=== PATIENT | female | born 1965 | race African-American/Black ===

== ENCOUNTER 2017-11-17 11:09 | Emergency (ER) | payer SELFPAY ==
[~2017-11-17] VITALS: Ht 167.6 cm; Wt 80.0 kg
[~2017-11-17 11:09] MED LIST: ALBU0.08 NEB; AMLO10TA2 PO; ASPI1TAB69 PO; CETI10 PO; IBUP1TAB7 PO; LISI-515 PO; NITR0.4S SL; POTA-163 PO
[2017-11-17 11:27] VITALS: BP 209/98; PULSE 91; RESP 19; TEMP 98.9; O2SAT 99
[2017-11-17 14:17] LABS: AUTOMATED NEUTROPHIL # 3.9 TH/MM3 (1.8-7.7); BASOPHIL % 0.5 % (0.0-2.0); EOSINOPHIL # 0.1 TH/MM3 (0-0.4); EOSINOPHIL % 1.3 % (0.0-4.0); HEMATOCRIT 46.8 % (35.0-46.0); HEMOGLOBIN 16.2 GM/DL (11.6-15.3); LYMPH % 28.5 % (9.0-44.0); LYMPHOCYTE # 1.8 TH/MM3 (1.0-4.8); MEAN CELL VOLUME 92.9 FL (80.0-100.0); MEAN CORPUSCULAR HEMOGLOBIN 32.2 PG (27.0-34.0); MEAN CORPUSCULAR HGB CONC 34.6 % (32.0-36.0); MEAN PLATELET VOLUME 8.8 FL (7.0-11.0); MONO % 8.4 % (0.0-8.0); MONOCYTE # 0.5 TH/MM3 (0-0.9); NEUT % 61.3 % (16.0-70.0); PLATELET COUNT 287 TH/MM3 (150-450); RED BLOOD COUNT 5.04 MIL/MM3 (4.00-5.30); RED CELL DISTRIBUTION WIDTH 13.1 % (11.6-17.2); WHITE BLOOD COUNT 6.3 TH/MM3 (4.0-11.0)
[2017-11-17 14:23] LABS: BILIRUBIN, URINE NEG (NEG); BLOOD, URINE NEG (NEG); GLUCOSE,URINE NEG (NEG); HYALINE CAST, URINE 1 /lpf (RARE); KETONE, URINE TRACE mg/dL (NEG); MUCUS URINE FEW /lpf (OCC); NITRITE,URINE NEG (NEG); SQUAMOUS EPITHELIAL CELL URINE 1 /hpf (0-5); URINE COLOR YELLOW (YELLW/STRAW); URINE LEUKOCYTE ESTERASE NEG (NEG)
[2017-11-17 14:33] LABS: ALBUMIN 4.1 GM/DL (3.4-5.0); AST (GOT) 21 U/L (15-37); BICARBONATE 25.1 MEQ/L (21.0-32.0); BLOOD UREA NITROGEN 15 MG/DL (7-18); CALCIUM 8.9 MG/DL (8.5-10.1); CHLORIDE 108 MEQ/L (98-107); CREATININE 0.99 MG/DL (0.50-1.00); GLOMERULAR FILTRATION RATE 71 ML/MIN (>89); GLUCOSE,RANDOM 114 MG/DL (74-106); SODIUM (NA) 142 MEQ/L (136-145)
[2017-11-17 14:36] LABS: ALKALINE PHOSPHATASE 91 U/L (45-117); ALT (GPT) 40 U/L (10-53); TOTAL BILIRUBIN ADULT 0.4 MG/DL (0.2-1.0); TOTAL PROTEIN 8.1 GM/DL (6.4-8.2)
[2017-11-17 14:40] LABS: PROTHROMBIN TIME - PATIENT 10.6 SEC (9.8-11.6)
[2017-11-17] MEDS ORDERED: POTASSIUM CHLORIDE 25 MEQ EFFERVESCENT TAB PO ONE (14:45)
[2017-11-17] MEDS ORDERED: SODIUM CHLOR 0.9% 1000 ML INJ 1,000 ML IV ONE (14:45)
[2017-11-17 14:46] VITALS: BP 217/95; PULSE 78; RESP 17; O2SAT 100
[2017-11-17] MEDS ORDERED: AMLO10TA2 PO (14:50)
[2017-11-17] MEDS ORDERED: LISI-515 PO (14:50)
--- NOTE | 2017-11-17 14:50 | PD ---
HPI Chief Complaint: Abdominal Pain Time Seen by Provider: 14:24 Travel History International Travel<30 days: No Contact w/Intl Traveler<30days: No Traveled to known affect area: No History of Present Illness HPI 52-year-old female came to the emergency room with history of diarrhea for past 4 days. She has had some sick contacts in the family. However she just had 2 episodes of diarrhea in past 24 hours. She says she has been nauseous but no vomiting. She also complains of some chest discomfort which she usually gets every now and then. Patient has history of hypertension and congestive heart failure. She supposed to be on blood pressure medications and nitro. But her primary care has stopped practicing and patient has not found another physician. She had not taken her medications for a few weeks now. Her blood pressure was elevated in triage. No history of shortness of breath. Chest pain is in the center without radiation and it comes and goes. Patient has had this chest pain for very long time in the same manner. [facility] Past Medical History Narrative Medical List of her past medical, surgical, social and family history is reviewed from the nursing note. Asthma: Yes Heart Rhythm Problems: No Cancer: No Cardiovascular Problems: Yes High Cholesterol: Yes Chest Pain: Yes Congestive Heart Failure: Yes COPD: Yes Coronary Artery Disease: Yes Diminished Hearing: No Endocrine: No Genitourinary: No Hypertension: Yes Immune Disorder: No Musculoskeletal: No Neurologic: No Psychiatric: No Reproductive: No Respiratory: Yes ?: Not Menopausal: Yes Past Surgical History Section: Yes (x 1) Ear Surgery: Yes Other Surgery: Yes (right ankle repair) Social History Alcohol Use: Yes (8 PACK BEER/DAY) Tobacco Use: Yes (1 PPD) Substance Use: Yes (THC) Allergies-Medications (Allergen,Severity, Reaction): Coded Allergies: No Known Allergies (Verified Adverse Reaction, Unknown, 11/17/17) Comments No known drug allergies. Reported Meds & Prescriptions Reported Meds & Active Scripts Active Amlodipine (Amlodipine Besylate) 10 Mg Tab 10 Mg PO DAILY Lisinopril 20 Mg Tab 20 Mg PO DAILY Reported Cetirizine (Cetirizine HCl) 10 Mg Tab 10 Mg PO DAILY Albuterol Neb (Albuterol Sulfate) 2.5 Mg/3 Ml Neb 2.5 Mg NEB QID NEB Nitrostat SL (Nitroglycerin) 0.4 Mg Subl 0.4 Mg SL DIRECTED PRN ONE TABLET UNDER THE TONGUE NEEDED FOR CHEST PAIN, MAY REPEAT EVERY FIVE MINUTES FOR A TOTAL OF 3 DOSES OR CALL 911 IF NO RELIEF Potassium Chloride ER (Potassium Chloride) 20 Meq Tab 20 Meq PO DAILY Ibuprofen 800 Mg Tab 800 Mg PO TID Aspirin 81 Mg Tabdr 81 Mg PO DAILY Narrative Medication List of her home medications reviewed from the nursing note. Review of Systems Except as stated in HPI: all other systems reviewed are Neg Cardiovascular: Positive: Chest Pain or Discomfort Gastrointestinal: Positive: Nausea, Diarrhea Physical Exam Narrative GENERAL: Awake, alert, mild distress SKIN: Focused skin assessment warm/dry. HEAD: Atraumatic. Normocephalic. EYES: Pupils equal and round. No scleral icterus. No injection or drainage. ENT: No nasal bleeding or discharge. Mucous membranes pink and moist. NECK: Trachea midline. No JVD. CARDIOVASCULAR: Regular rate and rhythm. No murmur appreciated. RESPIRATORY: No accessory muscle use. Clear to auscultation. Breath sounds equal bilaterally. GASTROINTESTINAL: Abdomen soft, non-tender, nondistended. Hepatic and splenic margins not palpable. MUSCULOSKELETAL: No obvious deformities. No clubbing. No cyanosis. No edema. NEUROLOGICAL: Awake and alert. No obvious cranial nerve deficits. Motor grossly within normal limits. Normal speech. PSYCHIATRIC: Appropriate mood and affect; insight and judgment normal. Data Data Last Documented VS Orders Orders Complete Blood Count With Diff (11/17/17 11:50) Comprehensive Metabolic Panel (11/17/17 11:50) Lipase (11/17/17 11:50) Prothrombin Time / Inr (Pt) (11/17/17 11:50) Act Partial Throm Time (Ptt) (11/17/17 11:50) Urinalysis - C+S If Indicated (11/17/17 11:50) Electrocardiogram (11/17/17 ) Sodium Chlor 0.9% 1000 Ml Inj (Ns 1000 M (11/17/17 14:45) Potassium Chloride Eff (K-Lyte Cl Eff) (11/17/17 14:45) Ed Discharge Order (11/17/17 14:44) Amlodipine (Norvasc) (11/17/17 15:00) Lisinopril (Prinivil) (11/17/17 15:00) Labs Laboratory Tests Test 3/6/18 13:44 White Blood Count 6.3 TH/MM3 Red Blood Count 5.04 MIL/MM3 Hemoglobin 16.2 GM/DL Hematocrit 46.8 % Mean Corpuscular Volume 92.9 FL Mean Corpuscular Hemoglobin 32.2 PG Mean Corpuscular Hemoglobin Concent 34.6 % Red Cell Distribution Width 13.1 % Platelet Count 287 TH/MM3 Mean Platelet Volume 8.8 FL Neutrophils (%) (Auto) 61.3 % Lymphocytes (%) (Auto) 28.5 % Monocytes (%) (Auto) 8.4 % Eosinophils (%) (Auto) 1.3 % Basophils (%) (Auto) 0.5 % Neutrophils # (Auto) 3.9 TH/MM3 Lymphocytes # (Auto) 1.8 TH/MM3 Monocytes # (Auto) 0.5 TH/MM3 Eosinophils # (Auto) 0.1 TH/MM3 Basophils # (Auto) 0.0 TH/MM3 CBC Comment DIFF FINAL Differential Comment Prothrombin Time 10.6 SEC Prothromb Time International Ratio 1.0 RATIO Activated Partial Thromboplast Time 25.9 SEC Urine Color YELLOW Urine Turbidity CLEAR Urine pH 6.0 Urine Specific [place] 1.028 Urine Protein 100 mg/dL Urine Glucose (UA) NEG mg/dL Urine Ketones TRACE mg/dL Urine Occult Blood NEG Urine Nitrite NEG Urine Bilirubin NEG Urine Urobilinogen LESS THAN 2.0 MG/DL Urine Leukocyte Esterase NEG Urine RBC LESS THAN 1 /hpf Urine WBC 2 /hpf Urine Squamous Epithelial Cells 1 /hpf Urine Hyaline Casts 1 /lpf Urine Mucus FEW /lpf Microscopic Urinalysis Comment CULT NOT INDICATED Blood Urea Nitrogen 15 MG/DL Creatinine 0.99 MG/DL Random Glucose 114 MG/DL Total Protein 8.1 GM/DL Albumin 4.1 GM/DL Calcium Level 8.9 MG/DL Alkaline Phosphatase 91 U/L Aspartate Amino Transf (AST/SGOT) 21 U/L Alanine Aminotransferase (ALT/SGPT) 40 U/L Total Bilirubin 0.4 MG/DL Sodium Level 142 MEQ/L Potassium Level 3.2 MEQ/L Chloride Level 108 MEQ/L Carbon Dioxide Level 25.1 MEQ/L Anion Gap 9 MEQ/L Estimat Glomerular Filtration Rate 71 ML/MIN Lipase 84 U/L MDM Medical Decision Making Medical Screen Exam Complete: Yes Emergency Medical Condition: Yes Medical Record Reviewed: Yes Interpretation(s) Twelve-lead EKG was reviewed by me. Normal sinus rhythm, normal axis, LVH by voltage criteria, nonspecific ST-T wave changes. Heart rate of 68 bpm. Differential Diagnosis Acute gastroenteritis, medication noncompliant Narrative Course 2:47 PM patient will be medicated for her hypertension. She is getting 1 L of IV fluid bolus. Meanwhile her blood test is also back and potassium is slightly low. I have ordered for replacement. She will be discharged home eventually with refill of her prescription. Procedures EKG Prior to Arrival: No Diagnosis Primary Impression: Acute gastroenteritis Additional Impressions: History of medication noncompliance Hypertension Qualified Codes: I10 - Essential (primary) hypertension Referrals: [facility] 3 days Additional Instructions: Return to the ER if condition worsens or any other new concerns. Please get the prescriptions filled and take the blood pressure medication like you are supposed to. Follow-up with the new clinic whose information has been given to you. Continue taking one baby aspirin every day. Med/Other Pt SpecificInfo: Prescription(s) given Scripts Amlodipine (Amlodipine) 10 Mg Tab 10 MG PO DAILY for Blood Pressure Management, #30 TAB 0 Refills Prov: Lola Frias MD 11/17/17 Lisinopril (Lisinopril) 20 Mg Tab 20 MG PO DAILY, #90 TAB 2 Refills Prov: Lola Frias MD 11/17/17 Disposition: 01 DISCHARGE HOME Condition: Stable Lola Frias MD Nov 17, 2017 14:50
[2017-11-17] MEDS ORDERED: LISINOPRIL 20 MG TAB PO ONE (15:00)
[2017-11-17 16:18] VITALS: BP 202/97; PULSE 73
--- NOTE | 2017-11-18 14:26 | EKG ---
Date Performed: 11/17/2017 Time Performed: 14:42:59 PTAGE: 52 years EKG: Sinus rhythm PREVIOUS TRACING : 08/16/2014 08.17 DOCTOR: Donnell Wilson Interpretating Date/Time 11/18/2017 14:24:58
== END 2017-11-17 17:01 | disposition home or self-care (01) ==
LOC: NEPD 11:09
DX: K52.9 Noninfective gastroenteritis and colitis, unspecified (principal); F17.200 Nicotine dependence, unspecified, uncomplicated; I11.0 Hypertensive heart disease with heart failure; I50.9 Heart failure, unspecified; Z91.14 Patient's other noncompliance with medication regimen
CPT/HCPCS: 80053; 81001; 83690; 85025; 85610; 85730; 93005; 96360; 96361; 99284; J7030

== ENCOUNTER 2017-12-02 13:49 | Emergency (ER) | payer SELFPAY ==
[~2017-12-02] VITALS: Ht 165.1 cm; Wt 65.0 kg
[2017-12-02 14:06] VITALS: BP 146/75; PULSE 97; RESP 16; TEMP 98; O2SAT 97
--- NOTE | 2017-12-02 14:11 | PD ---
HPI Chief Complaint: Respiratory Distress Time Seen by Provider: 14:05 Travel History International Travel<30 days: No Contact w/Intl Traveler<30days: No Traveled to known affect area: No History of Present Illness HPI 52-year-old female presents to the emergency department for evaluation of shortness of breath that started 2 days ago. She also reports upper abdominal pain/tightness. Patient was here on November 19, 2017 for diarrhea and was diagnosed with gastroenteritis. She states the symptoms are different. She does report history of CHF, hypertension, asthma. She states she was using albuterol, but has not used it today. She denies any chest pain. Patient states she vomited 2 times yesterday, no vomiting today. Patient does not know what medications that she is currently on. She reports chills, but no fevers. She denies any previous surgeries. No recent surgery or travel. No leg edema. No hemoptysis. No history DVT or PE. Patient states she had a bowel movement yesterday after being constipated for several days. Abdominal pain is 3/10 without radiation. No exacerbating or alleviating factors. Moderate severity. PFSH Past Medical History Asthma: Yes Heart Rhythm Problems: No Cancer: No Cardiovascular Problems: Yes High Cholesterol: Yes Chest Pain: Yes Congestive Heart Failure: Yes COPD: Yes Coronary Artery Disease: Yes Diminished Hearing: No Endocrine: No Genitourinary: No Hypertension: Yes Immune Disorder: No Musculoskeletal: No Neurologic: No Psychiatric: No Reproductive: No Respiratory: Yes Menopausal: Yes Past Surgical History Section: Yes (x 1) Ear Surgery: Yes Other Surgery: Yes (right ankle repair) Social History Alcohol Use: Yes (8 PACK BEER/DAY) Tobacco Use: Yes (1 PPD) Substance Use: Yes (THC) Allergies-Medications (Allergen,Severity, Reaction): Coded Allergies: No Known Allergies (Verified Adverse Reaction, Unknown, 11/17/17) Reported Meds & Prescriptions Reported Meds & Active Scripts Active Keflex (Cephalexin) 500 Mg Capsule 500 Mg PO Q8H 7 Days Amlodipine (Amlodipine Besylate) 10 Mg Tab 10 Mg PO DAILY Lisinopril 20 Mg Tab 20 Mg PO DAILY Reported Cetirizine (Cetirizine HCl) 10 Mg Tab 10 Mg PO DAILY Albuterol Neb (Albuterol Sulfate) 2.5 Mg/3 Ml Neb 2.5 Mg NEB QID NEB Nitrostat SL (Nitroglycerin) 0.4 Mg Subl 0.4 Mg SL DIRECTED PRN ONE TABLET UNDER THE TONGUE NEEDED FOR CHEST PAIN, MAY REPEAT EVERY FIVE MINUTES FOR A TOTAL OF 3 DOSES OR CALL 911 IF NO RELIEF Potassium Chloride ER (Potassium Chloride) 20 Meq Tab 20 Meq PO DAILY Ibuprofen 800 Mg Tab 800 Mg PO TID Aspirin 81 Mg Tabdr 81 Mg PO DAILY Review of Systems Except as stated in HPI: all other systems reviewed are Neg Physical Exam Narrative GENERAL: Well-nourished, well-developed female patient, afebrile. SKIN: Focused skin assessment warm/dry. HEAD: Normocephalic. Atraumatic. EYES: No scleral icterus. No injection or drainage. NECK: Supple, trachea midline. No JVD or lymphadenopathy. CARDIOVASCULAR: Regular rate and rhythm without murmurs, gallops, or rubs. Bilateral radial and pedal pulses are 2+ RESPIRATORY: Breath sounds equal bilaterally. No accessory muscle use. Lung sounds are clear to auscultation. GASTROINTESTINAL: Abdomen soft and nondistended. She has epigastric and right upper quadrant tenderness to palpation. MUSCULOSKELETAL: No cyanosis, or edema. BACK: Nontender without obvious deformity. No CVA tenderness. Data Data Last Documented VS Vital Signs Date Time Temp Pulse Resp B/P (MAP) Pulse Ox O2 Delivery O2 Flow Rate FiO2 12/02/17 16:27 91 18 137/68 (91) 97 Room Air 12/02/17 14:06 98.0 Orders Orders Complete Blood Count With Diff (12/02/17 14:07) Comprehensive Metabolic Panel (12/02/17 14:07) B-Type Natriuretic Peptide (12/02/17 14:07) Act Partial Throm Time (Ptt) (12/02/17 14:07) Prothrombin Time / Inr (Pt) (12/02/17 14:07) Magnesium (Mg) (12/02/17 14:07) Ckmb (Isoenzyme) Profile (12/02/17 14:07) Troponin I (12/02/17 14:07) Urinalysis - C+S If Indicated (12/02/17 14:07) Influenzae A/B Antigen (12/02/17 14:07) Iv Access Insert/Monitor (12/02/17 14:07) Electrocardiogram (12/02/17 14:07) Ecg Monitoring (12/02/17 14:07) Oximetry (12/02/17 14:07) Oxygen Administration (12/02/17 14:07) Chest, Single Ap (12/02/17 14:07) Sodium Chloride 0.9% Flush (Ns Flush) (12/02/17 14:15) Lipase (12/02/17 14:07) Ct Abd/Pel W Iv Contrast(Rout) (12/02/17 ) Ondansetron Inj (Zofran Inj) (12/02/17 14:15) CKMB (12/02/17 14:32) CKMB% (12/02/17 14:32) Urine Culture (12/02/17 14:15) Iohexol 350 Inj (Omnipaque 350 Inj) (12/02/17 15:49) Sodium Chlor 0.9% 1000 Ml Inj (Ns 1000 M (12/02/17 16:15) Ed Discharge Order (12/02/17 16:29) Labs Laboratory Tests Test 12/02/17 14:15 12/02/17 14:32 Urine Color YELLOW Urine Turbidity HAZY Urine pH 6.5 Urine Specific [place] 1.043 Urine Protein GREATER THAN 600 mg/dL Urine Glucose (UA) NEG mg/dL Urine Ketones NEG mg/dL Urine Occult Blood NEG Urine Nitrite NEG Urine Bilirubin SMALL Urine Urobilinogen 2.0 MG/DL Urine Leukocyte Esterase SMALL Urine RBC 7 /hpf Urine WBC 33 /hpf Urine Squamous Epithelial Cells 3 /hpf Urine Hyaline Casts 27 /lpf Urine Mucus MANY /lpf Microscopic Urinalysis Comment CULTURE INDICATED White Blood Count 4.7 TH/MM3 Red Blood Count 5.09 MIL/MM3 Hemoglobin 15.9 GM/DL Hematocrit 46.6 % Mean Corpuscular Volume 91.6 FL Mean Corpuscular Hemoglobin 31.2 PG Mean Corpuscular Hemoglobin Concent 34.0 % Red Cell Distribution Width 13.0 % Platelet Count 257 TH/MM3 Mean Platelet Volume 9.1 FL Neutrophils (%) (Auto) 56.9 % Lymphocytes (%) (Auto) 31.3 % Monocytes (%) (Auto) 11.1 % Eosinophils (%) (Auto) 0.1 % Basophils (%) (Auto) 0.6 % Neutrophils # (Auto) 2.7 TH/MM3 Lymphocytes # (Auto) 1.5 TH/MM3 Monocytes # (Auto) 0.5 TH/MM3 Eosinophils # (Auto) 0.0 TH/MM3 Basophils # (Auto) 0.0 TH/MM3 CBC Comment DIFF FINAL Differential Comment Prothrombin Time 9.9 SEC Prothromb Time International Ratio 1.0 RATIO Activated Partial Thromboplast Time 30.3 SEC Blood Urea Nitrogen 15 MG/DL Creatinine 1.34 MG/DL Random Glucose 98 MG/DL Total Protein 7.7 GM/DL Albumin 3.5 GM/DL Calcium Level 9.2 MG/DL Magnesium Level 2.3 MG/DL Alkaline Phosphatase 86 U/L Aspartate Amino Transf (AST/SGOT) 24 U/L Alanine Aminotransferase (ALT/SGPT) 33 U/L Total Bilirubin 0.2 MG/DL Sodium Level 142 MEQ/L Potassium Level 3.9 MEQ/L Chloride Level 107 MEQ/L Carbon Dioxide Level 25.5 MEQ/L Anion Gap 10 MEQ/L Estimat Glomerular Filtration Rate 50 ML/MIN Total Creatine Kinase 261 U/L Creatine Kinase MB 1.0 NG/ML Creatine Kinase MB % 0.4 % Troponin I LESS THAN 0.02 NG/ML B-Type Natriuretic Peptide 7 PG/ML Lipase 99 U/L [facility] Medical Decision Making Medical Screen Exam Complete: Yes Emergency Medical Condition: Yes Medical Record Reviewed: Yes Interpretation(s) Last Impressions Chest X-Ray 12/02/17 1407 Signed Impressions: Service Date/Time: Thursday, December 02, 2017 14:26 - CONCLUSION: No acute disease. Teodoro Penny MD CT abdomen/pelvis - CONCLUSION: Nonspecific bowel gas pattern I don't see an inflammatory process in the abdomen. Differential Diagnosis COPD exacerbation versus CHF exacerbation versus ACS versus pancreatitis versus UTI versus gallbladder disease versus diverticulitis Narrative Course 52-year-old female presents to the emergency department for evaluation of shortness of breath, abdominal pain that started 2 days ago with associated vomiting. EKG, CBC, CMP, CK, troponin, lipase, BNP, magnesium, PTT, PT/INR, UA , influenza are ordered and pending. Chest x-ray and CT abdomen/pelvis with IV contrast were ordered and pending. Patient was given Zofran 4 mg IV. EKG shows SR, HR 87. CBC shows no acute abnormality. CMP shows creatinine 1.34. CK is 261. Troponin is less than 0.02. Lipase is 99. BNP is 7. Magnesium is 2.3. Coags show no acute abnormality. UA shows small leukocyte esterase, 33 WBC. Influenza is negative. Chest x-ray shows no acute disease. CT abdomen/pelvis shows nonspecific bowel gas pattern, I don't see an inflammatory process in the abdomen. Patient is given normal saline 1 L IV bolus for hemoconcentration. She will be discharged prescription for Keflex for UTI. Symptoms and physical are consistent with viral syndrome Diagnosis Primary Impression: UTI (urinary tract infection) Qualified Codes: N30.00 - Acute cystitis without hematuria Additional Impression: Viral upper respiratory infection Referrals: Primary Care Physician call for appointment Patient Instructions: General Instructions, Urinary Tract Infection in Women ( ED) Additional Instructions: Take antibiotic as directed until gone. Follow-up with a primary care physician. Return to the emergency department for any acute worsening of symptoms. Med/Other Pt SpecificInfo: Prescription(s) given Scripts Cephalexin (Keflex) 500 Mg Capsule 500 MG PO Q8H for Infection for 7 Days, #21 CAP 0 Refills Prov: Bea Montiel 12/02/17 Disposition: 01 DISCHARGE HOME Condition: Stable Bea Montiel Dec 02, 2017 14:11
[2017-12-02] MEDS ORDERED: SODIUM CHLORIDE 0.9% FLUSH 10 ML FLUSH IVF PRN (14:15)
[2017-12-02] MEDS ORDERED: ONDANSETRON HCL 4 MG/2 ML VIAL IV PUSH ONE (14:15)
[2017-12-02 15:06] LABS: AUTOMATED NEUTROPHIL # 2.7 TH/MM3 (1.8-7.7); BASOPHIL % 0.6 % (0.0-2.0); EOSINOPHIL % 0.1 % (0.0-4.0); HEMATOCRIT 46.6 % (35.0-46.0); HEMOGLOBIN 15.9 GM/DL (11.6-15.3); LYMPH % 31.3 % (9.0-44.0); LYMPHOCYTE # 1.5 TH/MM3 (1.0-4.8); MEAN CELL VOLUME 91.6 FL (80.0-100.0); MEAN CORPUSCULAR HEMOGLOBIN 31.2 PG (27.0-34.0); MEAN PLATELET VOLUME 9.1 FL (7.0-11.0); MONO % 11.1 % (0.0-8.0); MONOCYTE # 0.5 TH/MM3 (0-0.9); NEUT % 56.9 % (16.0-70.0); PLATELET COUNT 257 TH/MM3 (150-450); RED BLOOD COUNT 5.09 MIL/MM3 (4.00-5.30); WHITE BLOOD COUNT 4.7 TH/MM3 (4.0-11.0)
--- NOTE | 2017-12-02 15:07 | RADRPT ---
EXAM DATE/TIME: 12/02/2017 14:26 [facility] COMPARISON: No previous studies available for comparison. INDICATIONS : Short of breath. MEDICAL HISTORY : Congestive heart failure. Hypertension SURGICAL HISTORY : None. ENCOUNTER: Initial ACUITY: 1 day PAIN SCORE: 0/10 LOCATION: Bilateral chest FINDINGS: A single view of the chest demonstrates the lungs to be symmetrically aerated without evidence of mas s, infiltrate or effusion. The cardiomediastinal contours are unremarkable. Osseous structures are intact. CONCLUSION: No acute disease. Teodoro Penny MD on December 02, 2017 at 15:04 Board Certified Radiologist. This report was verified electronically.
[2017-12-02 15:15] LABS: ALBUMIN 3.5 GM/DL (3.4-5.0); ALT (GPT) 33 U/L (10-53); AST (GOT) 24 U/L (15-37); BICARBONATE 25.5 MEQ/L (21.0-32.0); BLOOD UREA NITROGEN 15 MG/DL (7-18); CALCIUM 9.2 MG/DL (8.5-10.1); CHLORIDE 107 MEQ/L (98-107); CREATININE 1.34 MG/DL (0.50-1.00); GLOMERULAR FILTRATION RATE 50 ML/MIN (>89); GLUCOSE,RANDOM 98 MG/DL (74-106); MAGNESIUM 2.3 MG/DL (1.5-2.5); SODIUM (NA) 142 MEQ/L (136-145)
[2017-12-02 15:20] LABS: ALKALINE PHOSPHATASE 86 U/L (45-117); TOTAL BILIRUBIN ADULT 0.2 MG/DL (0.2-1.0); TOTAL PROTEIN 7.7 GM/DL (6.4-8.2); TROPONIN I LESS THAN 0.02 NG/ML (0.02-0.05)
[2017-12-02 15:27] LABS: PROTHROMBIN TIME - PATIENT 9.9 SEC (9.8-11.6)
[2017-12-02 15:31] LABS: BILIRUBIN, URINE SMALL (NEG); BLOOD, URINE NEG (NEG); GLUCOSE,URINE NEG (NEG); HYALINE CAST, URINE 27 /lpf (RARE); KETONE, URINE NEG (NEG); MUCUS URINE MANY /lpf (OCC); NITRITE,URINE NEG (NEG); PH, URINE 6.5 (5.0-8.5); SQUAMOUS EPITHELIAL CELL URINE 3 /hpf (0-5); URINE COLOR YELLOW (YELLW/STRAW); URINE LEUKOCYTE ESTERASE SMALL (NEG)
[2017-12-02] MEDS ORDERED: IOHEXOL 350 MG/ML 10 ML VIAL (for RAD DIAG) IVCONTRAST ONE (15:49)
--- NOTE | 2017-12-02 16:03 | RADRPT ---
EXAM DATE/TIME: 12/02/2017 15:46 [facility] COMPARISON: No previous studies available for comparison. INDICATIONS : Shortness of breath, nausea and vomiting. IV CONTRAST: 70 cc Omnipaque 350 (iohexol) IV ORAL CONTRAST: No oral contrast ingested. RADIATION DOSE: 9.40 CTDIvol (mGy) MEDICAL HISTORY : Cardiovascular disease. Chronic obstructive pulmonary disease. Hypertension. SURGICAL HISTORY : Hysterectomy. ENCOUNTER: Initial ACUITY: 1 day PAIN SCALE: 0/10 LOCATION: Bilateral lower quadrant TECHNIQUE: Volumetric scanning of the abdomen and pelvis was performed. Using automated exposure control and ad justment of the mA and/or kV according to patient size, radiation dose was kept as low as reasonably achievable to obtain optimal diagnostic quality images. DICOM format image data is available electro nically for review and comparison. FINDINGS: Lung base is are clear. There is trace pericardial effusion The liver and gallbladder unremarkable The pancreas and adrenal glands appear normal The spleen is of normal size There is symmetrical renal function without renal mass There is no ascites or adenopathy Colon appears unremarkable In the pelvis small fibroid is seen in the uterus. There is no adnexal mass. There are no inflammat ory changes evident. Review of bone windows reveals moderate degenerative changes in the lumbar spine. There is some bony sclerosis about the lateral right SI joint. CONCLUSION: Nonspecific bowel gas pattern I don't see an inflammatory process in the abdomen. Jaswinder Verdin MD FACR on December 02, 2017 at 15:59 Board Certified Radiologist. This report was verified electronically.
[2017-12-02] MEDS ORDERED: SODIUM CHLOR 0.9% 1000 ML INJ 1,000 ML IV ONE (16:15)
[2017-12-02] MEDS ORDERED: CEPH-460 PO (16:25)
[2017-12-02 16:27] VITALS: BP 137/68; PULSE 91; RESP 18; O2SAT 97
--- NOTE | 2017-12-02 19:24 | EKG ---
Date Performed: 12/02/2017 Time Performed: 14:55:22 PTAGE: 52 years EKG: Sinus rhythm RIGHT ATRIAL ENLARGEMENT LEFT ATRIAL ENLARGEMENT ABNORMAL ECG No significant change from prior elect rocardiogram. PREVIOUS TRACING : 11/17/2017 14.42 DOCTOR: Boby Arellano Interpretating Date/Time 12/02/2017 19:24:19
== END 2017-12-02 17:39 | disposition home or self-care (01) ==
LOC: NEDAMB 13:49
DX: N30.00 Acute cystitis without hematuria (principal); J06.9 Acute upper respiratory infection, unspecified; I11.0 Hypertensive heart disease with heart failure; I50.9 Heart failure, unspecified; J44.9 Chronic obstructive pulmonary disease, unspecified; R94.31 Abnormal electrocardiogram [ECG] [EKG]; F17.200 Nicotine dependence, unspecified, uncomplicated; F12.90 Cannabis use, unspecified, uncomplicated
CPT/HCPCS: 71045; 74177; 80053; 81001; 82550; 82552; 83690; 83735; 83880; 84484; 85025; 85610; 85730; 87086; 87804; 93005; 96361; 96374; 99285; J2405; J7030; Q9967

== ENCOUNTER 2018-06-16 04:16 | Observation (INO) ==
--- NOTE | 2018-06-16 05:03 | ED ---
HPI General Chief complaint: Shortness of Breath/Dyspnea Stated complaint: SOB Time Seen by Provider: 06/16/18 04:44 History of Present Illness HPI narrative: The patient is a 52 year old female who presents to the [facility] emergency department with a history of chest pain that began at 2:30 AM when she rolled over. It is worse with movement. It was associated with shortness of breath. the pain does not radiate. She denies any sweating with the pain. She denies any history of CAD, however she has a history of CHF. She incidentally also reports having a 1 month history of intermittent abdominal pain across the top of the abdomen that is exacerbated by coughing and a cough that has been coming and going. It is a tightening sensation at the top of the abdomen. The cough is productive of a white sputum. She denies having any insurance or a PMD. She has been out of her blood pressure medication for the last few months. On review of systems otherwise, the patient denies having any known recent fevers, congestion, neck pain, vomiting, diarrhea, urinary symptoms , or neurologic symptoms. The patient denies any prior history of DVT or PE. She denies having any calf pain, erythema, or edema. Related Data Home Medications Medication Instructions Recorded Confirmed Unable to Obtain Home Meds 06/16/18 06/16/18 Allergies Allergy/AdvReac Type Severity Reaction Status Date / Time No Known Allergies Allergy Verified 06/16/18 04:26 Review of Systems ROS: all other systems reviewed are negative [facility] Medical History Medical History CHF (congestive heart failure) (Acute) COPD (chronic obstructive pulmonary disease) (Acute) HTN (hypertension) (Acute) Surgical History Surgical History No history of previous surgery (Acute) Social History Social History Substance History: Active Abuse Second Hand Smoke Exposure: Yes Smoking Status: Current every day smoker Tobacco Type: Cigarettes Packs Per Day: 1 Cigarettes Per Day: 20.0 How Often Do You Have a Drink Containing Alcohol: 4 or more times a week Recent Travel in [facility] within the Last 8 Weeks: No Recent Out of Country Travel within the Last 8 Weeks: No Substance Abuse Detail Marijuana: Substance Use Status: Active Route Used Substance Abuse: By Mouth Reason for Use: Feels Good Alcohol: Substance Use Type Other:: 8 beers per day Immunization History Tetanus Immunization: >5 Years Hx Influenza Vaccine This Season: No Exam Const General: cooperative, no acute distress and well developed Nutritional Appearance: well nourished Orientation: alert, awake and oriented x3 HENMT Head: normocephalic and atraumatic Nose: no nasal discharge and no epistaxis Mouth: moist mucous membranes Throat: posterior oropharynx normal and uvula midline Eyes Sclera: normal sclerae Pupils: PERRL Neck Neck: trachea midline and no JVD Resp Effort & Inspection: no use of accessory muscles Auscultation: clear to auscultation bilaterally, no rales, no rhonchi and no wheezes Cardio Rate: regular rate Rhythm: regular rhythm Heart Sounds: no murmurs GI Inspection: non-distended Palpation: soft, no hepatosplenomegaly, no guarding, not rigid and nontender Auscultation: normal bowel sounds Back/Spine/Pelvis Back: no CVA tenderness Skin General: dry skin (warm) Neuro General: alert, awake, oriented x3 and other (Grossly nonfocal.) Speech: speech normal Motor: no movement abnormalities noted Extrem General: normal to inspection (2+ pulses in all 4 extremities.), calf tenderness , no clubbing, no cyanosis and no edema Psych Mood: congruent mood Affect: normal affect Judgment: judgment good Course Initial Documented Vital Signs Temperature 98.9 F 06/16/18 04:26 Pulse Rate 69 06/16/18 04:26 Respiratory Rate 24 06/16/18 04:26 Blood Pressure 205/93 H 06/16/18 04:26 Pulse Oximetry 96 06/16/18 04:26 Last Documented Vital Signs Temperature 98.9 F 06/16/18 05:33 Pulse Rate 58 L 06/16/18 05:38 Respiratory Rate 17 06/16/18 05:38 Blood Pressure 179/89 H 06/16/18 05:38 Pulse Oximetry 99 06/16/18 05:38 Medical Decision Making MDM Narrative Medical decision making narrative: During the course of the patient's emergency department visit, the patient's history, examination, and differential diagnosis were reviewed with the patient. The patient was placed on a clinical research monitor with oximetry and frequent blood pressure monitoring. The patient had IV access obtained and blood work sent for analysis. A diagnostic evaluation was started regarding the patient's chest pain and shortness of breath. The patient had a EKG done on arrival that showed us a normal sinus, no acute ST segment elevation. The patient was initially provided sublingual nitroglycerin x1, 1 inch of nitroglycerin to the chest wall. The patient was provided aspirin 324 mg by ambulance services prior to arrival.Diagnostic studies are remarkable for a CBC that is within normal limits, PT PTT within normal limits, d-dimer is less than 0.19 decreasing the likelihood of pulmonary embolism in this patient with no significant risk factors, chloride 112, creatinine 1.12, GFR of 61, lipase within normal limits, BNP 103, chest x-ray shows no acute cardiopulmonary disease. The patient's results were discussed with the patient, including the plan of care. I explained that further testing and/ or monitoring is indicated based on the patient's history, examination, and/ or laboratory findings. Therefore, I recommended admission for additional evaluation. The patient expressed understanding and was agreeable with this plan. The patient was admitted to the hospital in stable condition and sent to a bed under the care of the [facility]. Medical Screen Exam Complete: Yes Emergency Medical Condition: Yes Medical Records Medical records reviewed: Yes I reviewed the patient's medical records. Lab Data Lab results reviewed: Yes I reviewed the patient's lab results. Result diagrams: 06/16/18 04:56 06/16/18 04:56 Lab Results 06/16/18 06/16/18 06/16/18 Range/Units 04:56 04:56 04:56 WBC 6.0 (4.0-11.0) th/mm3 RBC 4.58 (4.00-5.30) mil/mm3 Hgb 14.6 (11.6-15.3) gm/dL Hct 43.8 (35.0-46.0) % MCV 95.7 (80.0-100.0) fL MCH 31.8 (27.0-34.0) pg MCHC 33.2 (32.0-36.0) % RDW 13.6 (11.6-17.2) % Plt Count 243 (150-450) th/mm3 MPV 9.3 (7.0-11.0) fL Neut % (Auto) 46.2 (16.0-70.0) % Lymph % (Auto) 39.7 (9.0-44.0) % [place] % (Auto) 6.6 (0.0-8.0) % Eos % (Auto) 6.7 H (0.0-4.0) % Baso % (Auto) 0.8 (0.0-2.0) % Neut # (Auto) 2.8 (1.8-7.7) th/mm3 Lymph # (Auto) 2.4 (1.0-4.8) th/mm3 [place] # (Auto) 0.4 (0.0-0.9) th/mm3 Eos # (Auto) 0.4 (0.0-0.4) th/mm3 Baso # (Auto) 0.1 (0.0-0.2) th/mm3 WBC Differential . Differential Comment Auto diff final PT (9.8-11.6) sec INR Ratio APTT (24.3-30.1) sec D-Dimer Quant (PE/DVT) (0.00-0.50) mg/L FEU Sodium 145 (136-145) meq/L Potassium 3.8 (3.5-5.1) meq/L Chloride 112 H (98-107) meq/L Carbon Dioxide 23.6 (21.0-32.0) meq/L Anion Gap 9 (5-15) meq/L BUN 18 (7-18) mg/dL Creatinine 1.12 H (0.50-1.00) mg/dL Estimated GFR 61 L (>89) mL/min Random Glucose 100 (74-106) mg/dL Calcium 8.9 (8.5-10.1) mg/dL Magnesium 2.1 (1.5-2.5) mg/dL Total Bilirubin 0.5 (0.2-1.0) mg/dL AST 18 (15-37) U/L ALT 29 (10-53) U/L Alkaline Phosphatase 84 (45-117) U/L Total Creatine Kinase 157 (26-192) U/L CK-MB (CK-2) 1.7 (0.5-3.6) ng/mL Troponin I 0.03 (0.02-0.05) ng/mL B-Natriuretic Peptide 103 H (0-100) pg/mL Total Protein 7.8 (6.4-8.2) g/dL Albumin 3.8 (3.4-5.0) g/dL Lipase 97 (73-393) U/L 06/16/18 Range/Units 04:56 WBC (4.0-11.0) th/mm3 RBC (4.00-5.30) mil/mm3 Hgb (11.6-15.3) gm/dL Hct (35.0-46.0) % MCV (80.0-100.0) fL MCH (27.0-34.0) pg MCHC (32.0-36.0) % RDW (11.6-17.2) % Plt Count (150-450) th/mm3 MPV (7.0-11.0) fL Neut % (Auto) (16.0-70.0) % Lymph % (Auto) (9.0-44.0) % [place] % (Auto) (0.0-8.0) % Eos % (Auto) (0.0-4.0) % Baso % (Auto) (0.0-2.0) % Neut # (Auto) (1.8-7.7) th/mm3 Lymph # (Auto) (1.0-4.8) th/mm3 [place] # (Auto) (0.0-0.9) th/mm3 Eos # (Auto) (0.0-0.4) th/mm3 Baso # (Auto) (0.0-0.2) th/mm3 WBC Differential Differential Comment PT 10.6 (9.8-11.6) sec INR 1.0 Ratio APTT 26.8 (24.3-30.1) sec D-Dimer Quant (PE/DVT) Less than 0.19 (0.00-0.50) mg/L FEU Sodium (136-145) meq/L Potassium (3.5-5.1) meq/L Chloride (98-107) meq/L Carbon Dioxide (21.0-32.0) meq/L Anion Gap (5-15) meq/L BUN (7-18) mg/dL Creatinine (0.50-1.00) mg/dL Estimated GFR (>89) mL/min Random Glucose (74-106) mg/dL Calcium (8.5-10.1) mg/dL Magnesium (1.5-2.5) mg/dL Total Bilirubin (0.2-1.0) mg/dL AST (15-37) U/L ALT (10-53) U/L Alkaline Phosphatase (45-117) U/L Total Creatine Kinase (26-192) U/L CK-MB (CK-2) (0.5-3.6) ng/mL Troponin I (0.02-0.05) ng/mL B-Natriuretic Peptide (0-100) pg/mL Total Protein (6.4-8.2) g/dL Albumin (3.4-5.0) g/dL Lipase (73-393) U/L Imaging Data Radiologist's impression: Chest X-Ray 06/16/18 04:45 CONCLUSION: 1. No acute cardiopulmonary disease. Discharge Plan Discharge Disposition Patient Disposition: 30 Still Patient Discharge Details Diagnosis: Chest pain, rule out acute myocardial infarction Physicians Team ED Provider: Maia Ferraro Primary Care Provider: Primary Care Natalie Malhotra Attending Provider: Benito Kumar Discharge Interventions Interventions: Vital Signs Last Done: 06/16/18 04:36 Status ED Status: Admitted Observation Patient
--- NOTE | 2018-06-16 05:07 | XR ---
EXAM DATE: 06/16/2018 4:45 AM EDT AGE/SEX: 52 years / Female INDICATIONS: Shortness of breath. CLINICAL DATA: This is the patient's initial encounter. Patient reports that signs and symptoms have been present for 1 day and indicates a pain score of Nonresponsive. MEDICAL/SURGICAL HISTORY: Congestive heart failure. Hypertension. None. COMPARISON: No prior exams available for comparison. FINDINGS: A single AP view of the chest demonstrates the lungs to be symmetrically aerated without evidence of mass, infiltrate or effusion. The cardiomediastinal contours are unremarkable. Osseous structures a re intact. CONCLUSION: 1. No acute cardiopulmonary disease. Electronically signed by: Ash Teran MD 06/16/2018 5:06 AM EDT
[2018-06-16 05:10] LABS: Baso # (Auto) 0.1 th/mm3 (0.0-0.2); Baso % (Auto) 0.8 % (0.0-2.0); Eos # (Auto) 0.4 th/mm3 (0.0-0.4); Eos % (Auto) 6.7 % (0.0-4.0); Hematocrit 43.8 % (35.0-46.0); Hemoglobin 14.6 gm/dL (11.6-15.3); Lymph # (Auto) 2.4 th/mm3 (1.0-4.8); Lymph % (Auto) 39.7 % (9.0-44.0); Mean Corpuscular HGB Conc 33.2 % (32.0-36.0); Mean Corpuscular Hemoglobin 31.8 pg (27.0-34.0); Mean Corpuscular Volume 95.7 fL (80.0-100.0); Mean Platelet Volume 9.3 fL (7.0-11.0); Mono # (Auto) 0.4 th/mm3 (0.0-0.9); Mono % (Auto) 6.6 % (0.0-8.0); Neut # (Auto) 2.8 th/mm3 (1.8-7.7); Neut % (Auto) 46.2 % (16.0-70.0); Platelet Count 243 th/mm3 (150-450); Red Blood Count 4.58 mil/mm3 (4.00-5.30); Red Cell Distribution Width 13.6 % (11.6-17.2)
[2018-06-16 05:24] LABS: Alanine Aminotransferase 29 U/L (10-53)
[2018-06-16 05:29] LABS: Alkaline Phosphatase 84 U/L (45-117); Creatine Kinase 157 U/L (26-192); Total Protein 7.8 g/dL (6.4-8.2); Troponin I 0.03 ng/mL (0.02-0.05)
[2018-06-16 05:32] LABS: Activated Partial Thrombo Time 26.8 sec (24.3-30.1); Prothrombin Time 10.6 sec (9.8-11.6)
[2018-06-16 05:33] LABS: Albumin 3.8 g/dL (3.4-5.0); Anion Gap 9 meq/L (5-15); Aspartate Aminotransferase 18 U/L (15-37); Blood Urea Nitrogen 18 mg/dL (7-18); Calcium 8.9 mg/dL (8.5-10.1); Carbon Dioxide 23.6 meq/L (21.0-32.0); Chloride 112 meq/L (98-107); Glomerular Filtration Rate 61 mL/min (>89); Glucose,Random 100 mg/dL (74-106); Lipase 97 U/L (73-393); Magnesium 2.1 mg/dL (1.5-2.5); Potassium 3.8 meq/L (3.5-5.1); Sodium 145 meq/L (136-145)
[2018-06-16 05:41] LABS: Creatine Kinase MB 1.7 ng/mL (0.5-3.6)
[2018-06-16] MEDS ORDERED: Acetaminophen 500 MG Tablet PO PRN (07:10)
--- NOTE | 2018-06-16 08:55 | P.HPCA ---
History of Present Illness Primary Care Physician: No Primary Care Physician Chief Complaint: Chest pain History of Present Illness: 52-year-old female with history of hypertension and current smoker presents emergency room for further evaluation of chest pain. Onset 2:30 AM. Awakened her from sleep. Location substernal. Characterized as a pressure. No radiation. Duration 1 hour. Associated symptoms included dyspnea. Denies nausea, vomiting, or diaphoresis. Did not hurt to take a deep breath. No particular movement or position made pain better or worse. No precipitating or relieving factors. Denies similar pain in the past. Also reports second type of chest discomfort onset "months." Location bilateral lower ribs. Characterizes intermittent tightness. Made worse with breathing accompanying with increased cough and white or clear sputum production. No precipitating or relieving factors. No known history of asthma or COPD. No recent illness, fever, or injury. Past cardiac testing None Social history No known coronary artery disease, diabetes, or hyperlipidemia. Known hypertension. Does not recall name of prescribed blood pressure medication. 1 pack/daily smoker. Occasional marijuana and alcohol use. Endorses sedentary lifestyle. Currently unemployed. Family history Noncontributory for early onset cardiovascular disease. 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 - Medical / Surgical Hx Neg / Unobtainable Surgical History: No Previous Surgery - Medical History Medical History: Medical History (Last Updated 06/16/18 @ 12:27 by MILLY Villarreal) CHF (congestive heart failure) COPD (chronic obstructive pulmonary disease) HTN (hypertension) - Surgical History Surgical History: Surgical History (Last Reviewed 06/16/18 @ 12:28 by MILLY Villarreal) No history of previous surgery - Social History I have reviewed the patient's Social History: Yes - Tobacco History Second Hand Smoke Exposure: Yes Tobacco Use In Past 30 Days: Yes Smoking Status: Current every day smoker Tobacco Type: Cigarettes Packs Per Day: 1 Cigarettes Per Day: 20.0 - Alcohol History How Often Do You Have a Drink Containing Alcohol: 4 or more times a week - Substance Use History Substance History: Active Abuse - Substance Use Type Marijuana Status: Active Route Used: By Mouth Reason for Use: Feels Good Alcohol Type: 8 beers per day - Travel History Recent Travel in the [place] Within the Last 8 Weeks: No Recent Travel Out of the Country Within the Last 8 Weeks: No - Immunization History Tetanus Immunization: >5 Years Hx Influenza Vaccine This Season: No Medications and Allergies Active Medications: Active Medications Acetaminophen (Tylenol) 500 mg PO Q4H PRN PRN Reason: HEADACHE Sodium Chloride (Ns Flush) 2 ml IV.FLUSH UNSCH PRN PRN Reason: FLUSH AFTER USING IV ACCESS Sodium Chloride (Ns Flush) 2 ml IV.FLUSH BID TERRI Sodium Chloride (Ns Flush) 2 ml IV.FLUSH PRN PRN PRN Reason: FLUSH AFTER USING IV ACCESS Allergies Allergy/AdvReac Type Severity Reaction Status Date / Time No Known Allergies Allergy Verified 06/16/18 04:26 Home Medications Medication Instructions Recorded Confirmed Type aspirin 81 mg PO DAILY 06/16/18 06/16/18 History cephalexin 06/16/18 06/16/18 History ibuprofen 800 mg PO TID 06/16/18 06/16/18 History Exam Vital signs: Vital Signs 06/16/18 04:26 06/16/18 04:36 06/16/18 04:48 Temperature 98.9 F 98.9 F Pulse Rate 69 69 Pulse Rate [Left Brachial] Respiratory Rate 24 24 Blood Pressure 205/93 H 205/93 H Blood Pressure [Left Arm] Blood Pressure [Right Arm] Pulse Oximetry 96 96 98 06/16/18 05:33 06/16/18 05:38 Temperature 98.9 F Pulse Rate 58 L Pulse Rate [Left Brachial] 64 Respiratory Rate 20 17 Blood Pressure 179/89 H Blood Pressure [Left Arm] 184/84 H Blood Pressure [Right Arm] 179/89 H Pulse Oximetry 100 99 Intake & Output 06/15/18 06/16/18 06/16/18 18:59 06:59 18:59 Weight 69.4 kg Narrative: GENERAL: Alert WN, WD, NAD, -[place] female who appears older than stated age HEAD: NC, AT EYES: Sclera reddened, conjunctiva injected, pupils equal and round ENT: Mucous membranes pink and moist CV: RRR, without murmur, rub, gallop, no JVD, S1-S2 RESP: Clear lungs throughout bilateral, slightly diminished, no crackles, wheeze , rhonchi, symmetrical chest rise, nonlabored, able to speak in full sentences ABD: Soft, NT, ND, no masses, positive bowel tones EXT: Pulses +1x4, no dependent edema MS: Normal tone x4 extremities, nontender, no obvious deformities, full range of motion NEURO: CN II through CN XII grossly intact, motor strength 5/5 PSYCH: A+O x3, flat affect, appropriate speech, somewhat agitated, questionable insight and judgment SKIN: Normal turgor, normal texture, no lesions, no rashes, bilateral lower extremities discolored Results 06/16/18 04:56 06/16/18 04:56 Cardiac Enzymes 06/16/18 06/16/18 Range/Units 04:56 04:56 AST 18 (15-37) U/L CK-MB (CK-2) 1.7 (0.5-3.6) ng/mL Troponin I 0.03 (0.02-0.05) ng/mL B-Natriuretic Peptide 103 H (0-100) pg/mL Coagulation 06/16/18 06/16/18 Range/Units 04:56 04:56 PT 10.6 (9.8-11.6) sec APTT 26.8 (24.3-30.1) sec B-Natriuretic Peptide 103 H (0-100) pg/mL CBC 06/16/18 Range/Units 04:56 WBC 6.0 (4.0-11.0) th/mm3 RBC 4.58 (4.00-5.30) mil/mm3 Hgb 14.6 (11.6-15.3) gm/dL Hct 43.8 (35.0-46.0) % Plt Count 243 (150-450) th/mm3 Neut # (Auto) 2.8 (1.8-7.7) th/mm3 Lymph # (Auto) 2.4 (1.0-4.8) th/mm3 [place] # (Auto) 0.4 (0.0-0.9) th/mm3 Eos # (Auto) 0.4 (0.0-0.4) th/mm3 Baso # (Auto) 0.1 (0.0-0.2) th/mm3 Comprehensive Metabolic Panel 06/16/18 Range/Units 04:56 Sodium 145 (136-145) meq/L Potassium 3.8 (3.5-5.1) meq/L Chloride 112 H (98-107) meq/L Carbon Dioxide 23.6 (21.0-32.0) meq/L BUN 18 (7-18) mg/dL Creatinine 1.12 H (0.50-1.00) mg/dL Calcium 8.9 (8.5-10.1) mg/dL AST 18 (15-37) U/L ALT 29 (10-53) U/L Alkaline Phosphatase 84 (45-117) U/L Total Protein 7.8 (6.4-8.2) g/dL Albumin 3.8 (3.4-5.0) g/dL Intake and Output 06/15/18 06/16/18 06/16/18 22:59 06:59 14:59 Other: Weight 69.4 kg - Imaging and Cardiology Imaging: Impressions Chest X-Ray 06/16/18 04:45 CONCLUSION: 1. No acute cardiopulmonary disease. EKG interpretations - EKG EKG results cardiology: sinus rhythm, normal axis, normal QRS, normal ST/T Caprini VTE Risk Assessment Caprini VTE Risk Assessment: No/Low Risk (score <= 1) Caprini Risk Assessment Model: Point Value = 1 Point Value = 2 Point Value = 3 Point Value = 5 Age 41-60 Minor surgery BMI > 25 kg/m2 Swollen legs Varicose veins or History of unexplained or recurrent spontaneous Oral contraceptives or hormone replacement Sepsis (< 1 month) Serious lung disease, including pneumonia (< 1 month) Abnormal pulmonary function Acute myocardial infarction Congestive heart failure (< 1 month) History of inflammatory bowel disease Medical patient at bed rest Age 61-74 Arthroscopic surgery Major open surgery (> 45 min) Laparoscopic surgery (> 45 min) Malignancy Confined to bed (> 72 hours) Immobilizing plaster cast Central venous access Age >= 75 History of VTE Family history of VTE Factor V Leiden Prothrombin [id number] Lupus anticoagulant Anticardiolipin antibodies Elevated serum homocysteine Heparin-induced thrombocytopenia Other congenital or acquired thrombophilia Stroke (< 1 month) Elective arthroplasty Hip, pelvis, or leg fracture Acute spinal cord injury (< 1 month) Prophylaxis Regimen: Total Risk Factor Score Risk Level Prophylaxis Regimen 0-1 Low Early ambulation 2 Moderate Order ONE of the following: *Sequential Compression Device (SCD) *Heparin 5000 units SQ BID 3-4 Higher Order ONE of the following medications: *Heparin 5000 units SQ TID *Enoxaparin/Lovenox 40 mg SQ daily (WT < 150 kg, CrCl > 30 mL/min) *Enoxaparin/Lovenox 30 mg SQ daily (WT < 150 kg, CrCl > 10-29 mL/min) *Enoxaparin/Lovenox 30 mg SQ BID (WT < 150 kg, CrCl > 30 mL/min) AND/OR *Sequential Compression Device (SCD) 5 or more Highest Order ONE of the following medications: *Heparin 5000 units SQ TID (Preferred with Epidurals) *Enoxaparin/Lovenox 40 mg SQ daily (WT < 150 kg, CrCl > 30 mL/min) *Enoxaparin/Lovenox 30 mg SQ daily (WT < 150 kg, CrCl > 10-29 mL/min) *Enoxaparin/Lovenox 30 mg SQ BID (WT < 150 kg, CrCl > 30 mL/min) AND *Sequential Compression Device (SCD) Assessment and Plan - Assessment (1) Chest pain of unknown etiology Code(s): R07.89 - Other chest pain Status: Acute Plan: Admitted chest pain center. ACS ruled out with 2 sets of EKGs and cardiac enzymes. Seen and evaluated by Dr. Benito Kumar. Proceed with exercise cardiac testing this morning. If unremarkable plans are to discharge home with follow-up with her primary care provider. (2) Tobacco use Code(s): Z72.0 - Tobacco use Status: Chronic Plan: Strongly encouraged and stressed importance of tobacco cessation. Instructed to quit smoking. Made aware of Tobacco Free [place] program available. (3) Hypertension Code(s): I10 - Essential (primary) hypertension Status: Acute Plan: Continue home medications once updated in electronic EMR. Amlodipine 5 mg p.o. x1 dose now. Strongly encouraged and stressed importance of tobacco cessation and following a low-sodium diet. (3) Hypertension Qualifiers: Hypertension type: unspecified Qualified Code(s): I10 - Essential (primary) hypertension
[2018-06-16 10:07] LABS: Troponin I 0.03 ng/mL (0.02-0.05)
[2018-06-16] MEDS ORDERED: amLODIPine 5 MG Tablet PO ONE ×2 (11:00→15:43)
[2018-06-16 11:42] VITALS: RESP 20
[2018-06-16 13:39] LABS: Troponin I 0.03 ng/mL (0.02-0.05)
[2018-06-16] MEDS ORDERED: Lisinopril 20 MG Tablet PO SCH (13:45)
[2018-06-16] MEDS ORDERED: Regadenoson Inj 0.4 MG/5 ML Syringe IV.PUSH ONE (13:47)
--- NOTE | 2018-06-16 14:55 | TR ---
Date Performed: 06/16/2018 Time Performed: 11:17:16 DOCTOR: Benito Kumar DRUG LIST: CLINICAL HISTORY: REASON FOR TEST: REASON FOR ENDING: OBSERVATION: CONCLUSION: Pardeep protocol attempted. Patient unable to walk safety on treadmill. Patient also r equested to stop due to poor exercise tolerance. COMMENTS: Non-diagnostic test due to failure to reach target heart rate
--- NOTE | 2018-06-16 14:58 | TR ---
Date Performed: 06/16/2018 Time Performed: 14:00:32 DOCTOR: Benito Kumar DRUG LIST: CLINICAL HISTORY: REASON FOR TEST: REASON FOR ENDING: OBSERVATION: CONCLUSION: COMMENTS: Lexiscan stress test was performed under standard four minute protocol. Radionuclide was injected one minute prior to ending the test. No electrocardiographic abormalities were present t o suggest ischemia. Nuclear imaging and interpretation are pending.
--- NOTE | 2018-06-16 15:11 | NM ---
EXAM DATE: 06/16/2018 1:39 PM EDT AGE/SEX: 52 years / Female INDICATIONS:Angina. Congestive heart failure Substernal chest pain. CLINICAL DATA: This is the patient's initial encounter. Patient reports that signs and symptoms have been present for 1 day and indicates a pain score of 2/10. MEDICAL/SURGICAL HISTORY: Chronic obstructive pulmonary disease. Hypertension. None. COMPARISON: . DOSE: 8.4 mCi Tc 99m Myoview at rest 27.2 mCi [id number] at stress 0.4 mg Lexiscan STRESS SYMPTOMS: Dyspnea and tired feeling. EJECTION FRACTION: 35 % TECHNIQUE: The patient underwent pharmacologic stress with infusion of prescribed dose. Continuous ECG tracing was monitored during stress. Gated SPECT imaging was performed after stress and conventi onal SPECT imaging was performed at rest. The examination was performed on a SPECT/CT scanner, both attenuation and non-corrected datasets were reviewed. FINDINGS: Distribution: The maximum perfused segment at stress is in the septal wall. Perfusion Study: There is 10-20% redistribution involving the anterior wall. No reversible defects greater than 20% observed.. Gated Study: There are intact wall motion and wall thickening without hypokinetic or dyskinetic segm ents. The ejection fraction is calculated at 35%. This is at the lower range of normal. RISK CATEGORY: Low (<1% Annual Motality Rate) CONCLUSION: 1. No significant reversible defects observed to suggest acute ischemia. Electronically signed by: Missael Overton MD 06/16/2018 3:09 PM EDT
[2018-06-16 15:41] VITALS: PULSE 71; TEMP 97.9; O2SAT 96
[2018-06-16 18:21] VITALS: BP 178/82
--- NOTE | 2018-06-17 08:06 | ECG ---
Date Performed: 06/16/2018 Time Performed: 09:10:53 PTAGE: 52 years EKG: SINUS BRADYCARDIA POSSIBLE LEFT ATRIAL ENLARGEMENT POSSIBLE LEFT VENTRICULAR HYPERTROPHY AB NORMAL ECG Since PREVIOUS TRACING , no significant change noted PREVIOUS TRACIN06/16/2018 04.39 DOCTOR: Kaylee Love Interpretating Date/Time 06/17/2018 08:04:28
--- NOTE | 2018-06-17 08:06 | ECG ---
Date Performed: 06/16/2018 Time Performed: 04:39:36 PTAGE: 52 years EKG: Sinus rhythm POSSIBLE LEFT ATRIAL ENLARGEMENT POSSIBLE LEFT VENTRICULAR HYPERTROPHY ABNORMAL ECG Since PREVIOUS TRACING , no significant change noted DOCTOR: Kaylee Love Interpretating Date/Time 06/17/2018 08:04:13
== END 2018-06-16 19:25 | disposition home or self-care (01) ==
LOC: NEDA 04:16 → NEPC 04:16 → NEPHCDU 08:45
PROVIDERS: ADMIT Internal Medicine Cardiovascular Disease; ATTEND Internal Medicine Cardiovascular Disease

== ENCOUNTER 2018-07-03 14:31 | Observation (INO) ==
[2018-07-03] MEDS ORDERED: MethylPREDNISolone Sod Succinate Inj 125 MG/2 ML Vial IV.PUSH ONE (14:35)
--- NOTE | 2018-07-03 15:06 | ED ---
HPI General Chief Complaint: Respiratory Symptoms Stated Complaint: medical Time Seen by Provider: 07/03/18 14:34 Source: patient and old records reviewed Mode of arrival: EMS Limitations: no limitations History of Present Illness MD Complaint: Reports shortness of breath Onset (ago): hour(s) (Onset was this morning) Severity: severe Consistency/Duration: constant and progressively worsening Relieving factors: nothing Exacerbating factors: nothing Known history of: Reports COPD and congestive heart failure Associated symptoms: Reports cough and sputum production (Clear to white); Denies fever Treatment prior to arrival: Reports oxygen, bronchodilator and other (BiPAP) Related Data Home oxygen amount: none Home Medications Medication Instructions Recorded Confirmed aspirin 81 mg PO DAILY 06/16/18 07/03/18 ibuprofen 800 mg PO TID 06/16/18 07/03/18 albuterol sulfate 2.5 mg INHALATION Q4-6H PRN 07/03/18 07/03/18 Previous Rx's Medication Instructions Recorded amlodipine 10 mg PO DAILY #30 tab 06/16/18 lisinopril 20 mg PO DAILY #30 tab 06/16/18 Allergies Allergy/AdvReac Type Severity Reaction Status Date / Time No Known Allergies Allergy Verified 06/16/18 04:26 Review of Systems ROS: all other systems reviewed are negative [facility] Medical History Medical History CHF (congestive heart failure) (Acute) COPD (chronic obstructive pulmonary disease) (Acute) HTN (hypertension) (Acute) Social History Social History Substance History: Active Abuse Second Hand Smoke Exposure: Yes Smoking Status: Current every day smoker Tobacco Type: Cigarettes Packs Per Day: 1 Cigarettes Per Day: 20.0 How Often Do You Have a Drink Containing Alcohol: 4 or more times a week Recent Travel in [facility] within the Last 8 Weeks: No Recent Out of Country Travel within the Last 8 Weeks: No Substance Abuse Detail Marijuana: Substance Use Status: Active Substance Frequency: daily Immunization History Tetanus Immunization: Unsure Exam Const General: cooperative, healthy appearing, comfortable, no acute distress, well developed and well groomed Orientation: alert, awake and oriented x3 HENMT Head: normal to inspection, normocephalic and atraumatic Eyes Alignment and Position: alignment normal Conjunctivae: conjunctivae normal Sclera: sclerae normal EOM: EOM intact bilaterally Neck Neck: normal visual inspection and full ROM Chest Chest: normal inspection of the chest Resp Effort & Inspection: audible wheezes, cough and labored Auscultation: diminished lung sounds and wheezes Cardio Rate: regular rate Rhythm: regular rhythm GI Inspection: normal to inspection Palpation: soft Back/Spine/Pelvis Cervical Spine: cervical ROM normal Thoracic/Lumbar Spine: thoraco-lumbar ROM normal Skin General: no rashes or lesions noted and turgor normal Neuro General: alert, awake, oriented x3, moves all extremities and CN's II-XI intact bilaterally Extrem General: normal to inspection and full ROM Psych Appearance: grossly normal Mental Status: mental status grossly normal Speech and Movement: speech and movement normal Mood: congruent mood Affect: normal affect Attitude: cooperative Thought Process: normal Thought Content: normal Judgment: judgment good Course Reevaluation(s) Reevaluation #1: She is now resting comfortably. She does not appear to be in any distress. She is on 2 L of oxygen with sats in the mid 90s. I have turned off her oxygen and will see how she does. Time: 16:04 Reevaluation #2: She is holding her sats in the mid 90s off of oxygen. Time: 16:38 Reevaluation #3: Sats around 90. She is wheezing again. I have ordered 3-hour nebs. The patient feels like she needs to stay in the hospital at least overnight. I will request an observation admission. Time: 18:33 Consultations Consultation #1: Dr. Amato will place in OBS Time: 19:10 Initial Documented Vital Signs Temperature 98.7 F 07/03/18 14:32 Pulse Rate 102 H 07/03/18 14:32 Respiratory Rate 28 H 07/03/18 14:32 Blood Pressure 174/77 H 07/03/18 14:32 Pulse Oximetry 97 07/03/18 14:32 Last Documented Vital Signs Temperature 98.7 F 07/03/18 14:32 Pulse Rate 93 H 07/03/18 18:47 Respiratory Rate 15 07/03/18 18:47 Blood Pressure 140/65 07/03/18 15:32 Pulse Oximetry 91 L 07/03/18 16:37 Critical Care Time Critical Care Time: Yes Total Critical Care Time: 30 Attestation: Time to perform other separately billable procedures was not included in the critical care time. My time did not include minutes spent treating any other patients simultaneously or on activities that did not directly contribute to the patient's treatment. The services I provided to this patient were to treat and/or prevent clinically significant deterioration due to respiratory distress I provided critical care services requiring my management, as noted below: Chart data review, documentation time, medication orders and management, vital sign assessments/reviewing monitor data, ordering and reviewing lab tests, ordering and interpreting/reviewing x-rays and diagnostic studies, care of the patient and discussion of the patient with the admitting physicians Medical Decision Making MDM Narrative Medical decision making narrative: This patient is brought to us by [facility] on BiPAP for acute respiratory distress. Onset of symptoms was this morning. She has tried her nebulizer machine at home with no relief of her symptoms. In fact , her symptoms have gotten worse rather than better. In addition to BiPAP, she was given an a DuoNeb followed by an albuterol neb. She arrives here awake and alert. She is lucid. She is having some respiratory distress. She also has a very persistent, asthmatic sounding cough. breath sounds are diminished with diffuse I&E wheezing. Medical Screen Exam Complete: Yes Emergency Medical Condition: Yes Differential Diagnosis Differential Diagnosis: Differential diagnosis of dyspnea includes but is not limited to congestive heart failure, pneumonia, wheezing, pneumothorax, pulmonary embolism Lab Data Lab results reviewed: Yes I reviewed the patient's lab results. Result diagrams: 07/03/18 14:45 07/03/18 14:45 Lab Results 07/03/18 07/03/18 07/03/18 Range/Units 14:45 14:45 14:45 WBC 6.8 (4.0-11.0) th/mm3 RBC 4.20 (4.00-5.30) mil/mm3 Hgb 13.8 (11.6-15.3) gm/dL Hct 39.2 (35.0-46.0) % MCV 93.3 (80.0-100.0) fL MCH 33.0 (27.0-34.0) pg MCHC 35.3 (32.0-36.0) % RDW 13.5 (11.6-17.2) % Plt Count 258 (150-450) th/mm3 MPV 9.0 (7.0-11.0) fL Neut % (Auto) 74.9 H (16.0-70.0) % Lymph % (Auto) 15.5 (9.0-44.0) % [place] % (Auto) 6.0 (0.0-8.0) % Eos % (Auto) 3.1 (0.0-4.0) % Baso % (Auto) 0.5 (0.0-2.0) % Neut # (Auto) 5.1 (1.8-7.7) th/mm3 Lymph # (Auto) 1.1 (1.0-4.8) th/mm3 [place] # (Auto) 0.4 (0.0-0.9) th/mm3 Eos # (Auto) 0.2 (0.0-0.4) th/mm3 Baso # (Auto) 0.0 (0.0-0.2) th/mm3 WBC Differential . Differential Comment Auto diff final Sodium 144 (136-145) meq/L Potassium 3.3 L (3.5-5.1) meq/L Chloride 109 H (98-107) meq/L Carbon Dioxide 26.1 (21.0-32.0) meq/L Anion Gap 9 (5-15) meq/L BUN 10 (7-18) mg/dL Creatinine 0.78 (0.50-1.00) mg/dL Estimated GFR Greater than 89 (>89) mL/min Random Glucose 97 (74-106) mg/dL Calcium 9.3 (8.5-10.1) mg/dL Total Bilirubin 0.8 (0.2-1.0) mg/dL AST 24 (15-37) U/L ALT 38 (10-53) U/L Alkaline Phosphatase 88 (45-117) U/L Troponin I 0.02 (0.02-0.05) ng/mL B-Natriuretic Peptide 32 (0-100) pg/mL Total Protein 7.7 (6.4-8.2) g/dL Albumin 3.9 (3.4-5.0) g/dL Imaging Data Attestation: I personally reviewed and interpreted this imaging study as follows : Radiologist's impression: Chest X-Ray 07/03/18 14:35 CONCLUSION: Negative examination. ECG Data EKG Prior to Arrival: No Attestation: I personally reviewed and interpreted this ECG as follows: (EKG shows a sinus rhythm with a rate of 101. No acute STT wave changes. Biatrial enlargement.) Discharge Plan Discharge Disposition Patient Disposition: 30 Still Patient Discharge Details Diagnosis: COPD exacerbation Physicians Team ED Provider: Michaelle Newman Primary Care Provider: Primary Care Natalie Malhotra Rxs /Orders / Referrals /Forms Prescriptions: No Action ibuprofen 800 mg Tablet 800 mg PO TID RF: 0 aspirin 81 mg Tablet,Chewable 81 mg PO DAILY RF: 0 lisinopril 20 mg Tablet 20 mg PO DAILY Qty: 30 RF: 1 amlodipine 10 mg Tablet 10 mg PO DAILY Qty: 30 RF: 1 albuterol sulfate 2.5 mg /3 mL (0.083 %) Solution For Nebulization 2.5 mg INHALATION Q4-6H PRN (Reason: Shortness Of Breath Or Wheezing) RF: 0 Discharge Interventions Interventions: Vital Signs Last Done: 07/03/18 15:32 Status ED Status: With Doctor
[2018-07-03 15:09] LABS: Baso % (Auto) 0.5 % (0.0-2.0); Eos # (Auto) 0.2 th/mm3 (0.0-0.4); Eos % (Auto) 3.1 % (0.0-4.0); Hematocrit 39.2 % (35.0-46.0); Hemoglobin 13.8 gm/dL (11.6-15.3); Lymph # (Auto) 1.1 th/mm3 (1.0-4.8); Lymph % (Auto) 15.5 % (9.0-44.0); Mean Corpuscular HGB Conc 35.3 % (32.0-36.0); Mean Corpuscular Volume 93.3 fL (80.0-100.0); Mono # (Auto) 0.4 th/mm3 (0.0-0.9); Neut # (Auto) 5.1 th/mm3 (1.8-7.7); Neut % (Auto) 74.9 % (16.0-70.0); Platelet Count 258 th/mm3 (150-450); Red Cell Distribution Width 13.5 % (11.6-17.2); White Blood Count 6.8 th/mm3 (4.0-11.0)
--- NOTE | 2018-07-03 15:10 | XR ---
EXAM DATE: 07/03/2018 2:35 PM EDT AGE/SEX: 52 years / Female INDICATIONS: Short of breath. CLINICAL DATA: This is the patient's subsequent encounter. Patient reports that signs and symptoms h ave been present for 1 day and indicates a pain score of 6/10. MEDICAL/SURGICAL HISTORY: None. None. COMPARISON: Previous chest x-ray dated 06/16/2018.. FINDINGS: A single AP view of the chest demonstrates the lungs to be symmetrically aerated without evidence of mass, infiltrate or effusion. The cardiomediastinal contours are unremarkable. Osseous structures a re intact. CONCLUSION: Negative examination. Electronically signed by: Ron Olivarez MD 07/03/2018 3:09 PM EDT
[2018-07-03 15:33] LABS: Alanine Aminotransferase 38 U/L (10-53); Albumin 3.9 g/dL (3.4-5.0); Anion Gap 9 meq/L (5-15); Aspartate Aminotransferase 24 U/L (15-37); Blood Urea Nitrogen 10 mg/dL (7-18); Calcium 9.3 mg/dL (8.5-10.1); Carbon Dioxide 26.1 meq/L (21.0-32.0); Chloride 109 meq/L (98-107); Glomerular Filtration Rate Greater Than 89 mL/min (>89); Glucose,Random 97 mg/dL (74-106); Potassium 3.3 meq/L (3.5-5.1); Sodium 144 meq/L (136-145)
[2018-07-03 15:36] LABS: Alkaline Phosphatase 88 U/L (45-117); Total Protein 7.7 g/dL (6.4-8.2); Troponin I 0.02 ng/mL (0.02-0.05)
[2018-07-03] MEDS ORDERED: Bisacodyl 10 MG Supp RECTAL PRN (19:09)
[2018-07-03] MEDS ORDERED: Acetaminophen 325 MG Tablet PO PRN (19:09)
--- NOTE | 2018-07-03 19:11 | P.HPIM ---
History of Present Illness Primary Care Physician: No Primary Care Physician History of Present Illness: This is a 52-year-old female with a PMH of HTN, Hyperlipidemia, CHF (Echo 2013 with EF 45-50%), COPD and Tobacco Abuse who presented to ER with complaints of SOB, wheezing and productive cough w/ white-colored sputum x2 days. States she's been using home Nebulizer w/ minimal improvement. Denies fever, chills, chest pain or sick contacts. On arrival, BP 174/77, HR 102, O2 sat 97% on 3L NC, Afebrile. CBC unremarkable. Chemistry essentially unremarkable. Troponin negative. CXR with no acute findings. S/p Solu-Medrol and DuoNeb in ER w/ some improvement, however persistent SOB/wheezing. - Diagnosis (1) COPD (chronic obstructive pulmonary disease) (2) CHF (congestive heart failure) (3) HTN (hypertension) (4) Tobacco use Review of Systems PAST FAMILY HISTORY: Reviewed. No h/o DM or CAD All other systems reviewed negative except as stated in HPI [facility] - History History Provided By: Patient, Marketing And Communications Officer / EMT - Medical History Medical History: Medical History (Last Reviewed 07/03/18 @ 15:01 by Michaelle Newman) CHF (congestive heart failure) COPD (chronic obstructive pulmonary disease) HTN (hypertension) - Surgical History Surgical History: Surgical History (Last Reviewed 07/03/18 @ 14:34 by Lisa Mariano) No history of previous surgery - Tobacco History Second Hand Smoke Exposure: Yes Tobacco Use In Past 30 Days: Yes Smoking Status: Current every day smoker Tobacco Type: Cigarettes Packs Per Day: 1 Cigarettes Per Day: 20.0 - Alcohol History How Often Do You Have a Drink Containing Alcohol: 4 or more times a week - Substance Use History Substance History: Active Abuse - Substance Use Type Marijuana Status: Active Frequency: daily - Travel History Recent Travel in the [place] Within the Last 8 Weeks: No Recent Travel Out of the Country Within the Last 8 Weeks: No - Immunization History Tetanus Immunization: Unsure Medications and Allergies Active Medications: Active Medications Albuterol (Duoneb Neb (Terri)) 1 ampul NEB Q15M TERRI Stop: 07/03/18 19:16 Last Admin: 07/03/18 18:44 Dose: 1 ampul Allergies Allergy/AdvReac Type Severity Reaction Status Date / Time No Known Allergies Allergy Verified 06/16/18 04:26 Home Medications Medication Instructions Recorded Confirmed Type aspirin 81 mg PO DAILY 06/16/18 07/03/18 History ibuprofen 800 mg PO TID 06/16/18 07/03/18 History albuterol sulfate 2.5 mg INHALATION Q4-6H PRN 07/03/18 07/03/18 History Exam Vital signs: Vital Signs 07/03/18 14:32 07/03/18 14:37 07/03/18 14:38 Temperature 98.7 F Pulse Rate 102 H 105 H Respiratory Rate 28 H Blood Pressure 174/77 H Pulse Oximetry 97 96 07/03/18 14:39 07/03/18 14:41 07/03/18 14:43 Temperature Pulse Rate 99 H 99 H 99 H Respiratory Rate 17 17 17 Blood Pressure Pulse Oximetry 97 07/03/18 15:32 07/03/18 16:37 07/03/18 18:46 Temperature Pulse Rate 96 H 104 H Respiratory Rate 20 15 Blood Pressure 140/65 Pulse Oximetry 97 91 L 07/03/18 18:47 Temperature Pulse Rate 93 H Respiratory Rate 15 Blood Pressure Pulse Oximetry Intake & Output 07/03/18 07/03/18 07/04/18 06:59 18:59 06:59 Weight 72.575 kg Narrative: PE: GENERAL: Pleasant middle-aged black female in no acute distress. Mother at bedside SKIN: Focused skin assessment warm and dry. HEENT: PERRLA, EOMI. No scleral icterus or conjunctival pallor. No lid lag or facial droop. CARDIOVASCULAR: Regular rate and rhythm. No obvious murmurs to auscultation. No chest tenderness to palpation. RESPIRATORY: No obvious rhonchi. Occasional wheezing. Clear to auscultation. Breath sounds equal bilaterally. GASTROINTESTINAL: Abdomen soft, non-tender, nondistended. BS normal. MUSCULOSKELETAL: Extremities without clubbing, cyanosis, or edema. No obvious deformities. NEUROLOGICAL: Awake, alert and oriented x4. No focal neurologic deficits. Moving both upper and lower extremities spontaneously. PSYCHIATRIC: Appropriate mood and affect. Insight and judgment normal. Results - Labs CBC & Chem 7: 07/03/18 14:45 07/03/18 14:45 Labs: Short CBC 07/03/18 Range/Units 14:45 WBC 6.8 (4.0-11.0) th/mm3 Hgb 13.8 (11.6-15.3) gm/dL Hct 39.2 (35.0-46.0) % Plt Count 258 (150-450) th/mm3 BMP 07/03/18 14:45 Sodium 144 Potassium 3.3 L Chloride 109 H Carbon Dioxide 26.1 BUN 10 Creatinine 0.78 Calcium 9.3 Cardiac Enzymes 07/03/18 Range/Units 14:45 Troponin I 0.02 (0.02-0.05) ng/mL Liver Function 07/03/18 Range/Units 14:45 Total Bilirubin 0.8 (0.2-1.0) mg/dL AST 24 (15-37) U/L ALT 38 (10-53) U/L Alkaline Phosphatase 88 (45-117) U/L Albumin 3.9 (3.4-5.0) g/dL - Imaging Impressions Chest X-Ray 07/03/18 14:35 CONCLUSION: Negative examination. Caprini VTE Risk Assessment Caprini VTE Risk Assessment: No/Low Risk (score <= 1) Caprini Risk Assessment Model: Point Value = 1 Point Value = 2 Point Value = 3 Point Value = 5 Age 41-60 Minor surgery BMI > 25 kg/m2 Swollen legs Varicose veins or History of unexplained or recurrent spontaneous Oral contraceptives or hormone replacement Sepsis (< 1 month) Serious lung disease, including pneumonia (< 1 month) Abnormal pulmonary function Acute myocardial infarction Congestive heart failure (< 1 month) History of inflammatory bowel disease Medical patient at bed rest Age 61-74 Arthroscopic surgery Major open surgery (> 45 min) Laparoscopic surgery (> 45 min) Malignancy Confined to bed (> 72 hours) Immobilizing plaster cast Central venous access Age >= 75 History of VTE Family history of VTE Factor V Leiden Prothrombin 43016C Lupus anticoagulant Anticardiolipin antibodies Elevated serum homocysteine Heparin-induced thrombocytopenia Other congenital or acquired thrombophilia Stroke (< 1 month) Elective arthroplasty Hip, pelvis, or leg fracture Acute spinal cord injury (< 1 month) Prophylaxis Regimen: Total Risk Factor Score Risk Level Prophylaxis Regimen 0-1 Low Early ambulation 2 Moderate Order ONE of the following: *Sequential Compression Device (SCD) *Heparin 5000 units SQ BID 3-4 Higher Order ONE of the following medications: *Heparin 5000 units SQ TID *Enoxaparin/Lovenox 40 mg SQ daily (WT < 150 kg, CrCl > 30 mL/min) *Enoxaparin/Lovenox 30 mg SQ daily (WT < 150 kg, CrCl > 10-29 mL/min) *Enoxaparin/Lovenox 30 mg SQ BID (WT < 150 kg, CrCl > 30 mL/min) AND/OR *Sequential Compression Device (SCD) 5 or more Highest Order ONE of the following medications: *Heparin 5000 units SQ TID (Preferred with Epidurals) *Enoxaparin/Lovenox 40 mg SQ daily (WT < 150 kg, CrCl > 30 mL/min) *Enoxaparin/Lovenox 30 mg SQ daily (WT < 150 kg, CrCl > 10-29 mL/min) *Enoxaparin/Lovenox 30 mg SQ BID (WT < 150 kg, CrCl > 30 mL/min) AND *Sequential Compression Device (SCD) Assessment and Plan - Assessment (1) COPD (chronic obstructive pulmonary disease) Code(s): J44.9 - Chronic obstructive pulmonary disease, unspecified Status: Acute (2) CHF (congestive heart failure) Code(s): I50.9 - Heart failure, unspecified Status: Acute (3) HTN (hypertension) Code(s): I10 - Essential (primary) hypertension Status: Acute (4) Tobacco use Code(s): Z72.0 - Tobacco use Status: Chronic - Plan A/P: 1. COPD: Chronic Respiratory Failure w/ Acute Exacerbation. Severe. +SOB/ wheezing despite Solu-Medrol/DuoNeb in ER, will continue w/ Solu-Medrol, DuoNeb , Symbicort, Mucinex. Monitor O2. 2. CHF: Chronic. Systolic. Echo 04/17/14 w/ EF 45-50%, BNP normal, CXR w/ no acute findings, images reviewed. Monitor I/O. 3. HTN: Uncontrolled. BP 170's, likely compounded by acute COPD exacerbation and respiratory distress, resume home medications, antihypertensives as needed for BP >180 4. DVT Prophylaxis: Lovenox sq 5. Social work for d/c planning as needed. 6. Case discussed w/ ER physician at length, labs/records/imaging reviewed by me.
--- NOTE | 2018-07-03 19:25 | ECG ---
Date Performed: 07/03/2018 Time Performed: 14:55:16 PTAGE: 52 years EKG: SINUS TACHYCARDIA RIGHT ATRIAL ENLARGEMENT LEFT ATRIAL ENLARGEMENT ABNORMAL ECG PREVIOUS TRACING : 06/16/2018 09.10 Compared to previous tracing, rate faster DOCTOR: Adalberto Lewis Interpretating Date/Time 07/03/2018 19:25:02
[2018-07-03] MEDS: guaiFENesin 600 MG ER Tablet PO SCH (20:49)
[2018-07-03] MEDS: Senna/Docusate Sodium 8.6/50 MG Tablet PO SCH (20:49)
[2018-07-03] MEDS: MethylPREDNISolone Sod Succinate Inj 40 MG/ML Vial IV.PUSH SCH (20:49)
[2018-07-03] MEDS: Budesonide-Formoterol 160/4.5 MCG 6 GM Inhaler INH SCH (21:57)
[2018-07-04] MEDS: MethylPREDNISolone Sod Succinate Inj 40 MG/ML Vial IV.PUSH SCH ×4 (02:41→22:15)
[2018-07-04] MEDS: Senna/Docusate Sodium 8.6/50 MG Tablet PO SCH ×2 (10:09→22:15)
[2018-07-04] MEDS: Lisinopril 20 MG Tablet PO SCH (10:09)
[2018-07-04] MEDS: guaiFENesin 600 MG ER Tablet PO SCH ×2 (10:09→20:43)
[2018-07-04] MEDS: Enoxaparin Inj 40 MG/0.4 ML Syringe SQ SCH (10:10)
[2018-07-04] MEDS: amLODIPine 10 MG Tablet PO SCH (10:10)
--- NOTE | 2018-07-04 10:17 | P.PN ---
Subjective Interval history: Follow-up for COPD exacerbation. Patient reports mild improvement overnight. She reports continued shortness of breath and significant cough productive of whiteyellow sputum. She reports feeling warm with occasional chills, but no documented fevers. She reports bilateral lower rib cage pain with cough. Denies any specific chest pains. Denies any other medical complaints at this time. She does not feel ready for discharge today. Physical Exam Vital signs: Vital Signs 07/03/18 14:32 07/03/18 14:37 07/03/18 14:38 Temperature 98.7 F Pulse Rate 102 H 105 H Respiratory Rate 28 H Blood Pressure 174/77 H Pulse Oximetry 97 96 07/03/18 14:39 07/03/18 14:41 07/03/18 14:43 Temperature Pulse Rate 99 H 99 H 99 H Respiratory Rate 17 17 17 Blood Pressure Pulse Oximetry 97 07/03/18 15:32 07/03/18 16:37 07/03/18 18:46 Temperature Pulse Rate 96 H 104 H Respiratory Rate 20 15 Blood Pressure 140/65 Pulse Oximetry 97 91 L 07/03/18 18:47 07/03/18 20:00 07/03/18 23:37 Temperature 98 F 98.3 F Pulse Rate 93 H 103 H 98 H Respiratory Rate 15 20 16 Blood Pressure 161/72 H 154/67 H Pulse Oximetry 94 L 97 07/04/18 03:29 07/04/18 08:00 07/04/18 09:28 Temperature 97.9 F 99.0 F Pulse Rate 88 92 H 91 H Respiratory Rate 18 18 18 Blood Pressure 172/77 H 183/88 H Pulse Oximetry 93 L 94 L 97 Intake & Output 07/03/18 07/04/18 07/04/18 18:59 06:59 18:59 Weight 72.575 kg 72.575 kg Other: Date of Last Bowel Movement 07/01/18 Weight On Admission 72.575 kg Narrative: GENERAL: Well-nourished, well-developed pleasant middle-age female patient in [facility]. SKIN: Warm and dry. No rash. HEENT: Normocephalic. Atraumatic. Pupils equal and round. Mucous membranes pink and moist. NECK: Supple. Trachea midline. CARDIOVASCULAR: Regular rate and rhythm. No murmur appreciated. RESPIRATORY: No accessory muscle use. Decreased breath sounds at bilateral bases with scattered expiratory wheezing. Breath sounds equal bilaterally. GASTROINTESTINAL: Abdomen soft, non-tender, nondistended. Normoactive bowel sounds x4. MUSCULOSKELETAL: No obvious deformities. Extremities without clubbing, cyanosis , or edema. NEUROLOGICAL: Awake and alert. No obvious cranial nerve deficits. Motor grossly within normal limits. Moving all extremities spontaneously. Normal speech. Results - Labs CBC & Chem 7: 07/04/18 10:38 07/04/18 10:38 Laboratory Results - last 24 hr 07/03/18 07/03/18 07/03/18 14:45 14:45 14:45 WBC 6.8 RBC 4.20 Hgb 13.8 Hct 39.2 MCV 93.3 MCH 33.0 MCHC 35.3 RDW 13.5 Plt Count 258 MPV 9.0 Neut % (Auto) 74.9 H Lymph % (Auto) 15.5 [place] % (Auto) 6.0 Eos % (Auto) 3.1 Baso % (Auto) 0.5 Neut # (Auto) 5.1 Lymph # (Auto) 1.1 [place] # (Auto) 0.4 Eos # (Auto) 0.2 Baso # (Auto) 0.0 WBC Differential . Differential Comment Auto diff final Sodium 144 Potassium 3.3 L Chloride 109 H Carbon Dioxide 26.1 Anion Gap 9 BUN 10 Creatinine 0.78 Estimated GFR Greater than 89 Random Glucose 97 Calcium 9.3 Total Bilirubin 0.8 AST 24 ALT 38 Alkaline Phosphatase 88 Troponin I 0.02 B-Natriuretic Peptide 32 Total Protein 7.7 Albumin 3.9 - Imaging Impressions Chest X-Ray 07/03/18 14:35 CONCLUSION: Negative examination. Assessment and Plan - Assessment (1) COPD (chronic obstructive pulmonary disease) Code(s): J44.9 - Chronic obstructive pulmonary disease, unspecified Status: Acute (2) CHF (congestive heart failure) Code(s): I50.9 - Heart failure, unspecified Status: Acute (3) HTN (hypertension) Code(s): I10 - Essential (primary) hypertension Status: Acute (4) Tobacco use Code(s): Z72.0 - Tobacco use Status: Chronic - Plan 52-year-old female with a PMH of HTN, Hyperlipidemia, CHF (Echo 04/17/2014 with EF 45-50%), COPD and Tobacco Abuse who presented to ER with complaints of SOB, wheezing and productive cough w/ white-colored sputum x2 days. Acute COPD Exacerbation: Severe. +SOB/wheezing despite Solu-Medrol/DuoNeb in ER -Continue steroids with IV Solu-Medrol 40 mg every 6 hours -Continue bronchodilators with DuoNeb's every 6 hours -Continue Symbicort twice daily -Continue Mucinex, added Tessalon Perles for cough -Given purulent sputum production, started on Levaquin 750 mg daily -O2 as needed to maintain O2 sats greater than 92% -Continue to monitor, not yet ready for discharge CHF: Chronic. Systolic. Does not appear to be significantly fluid overloaded at this time. -EMR reviewed, echo 04/17/14 w/ EF 45-50% -BNP normal -CXR w/ no acute findings, images reviewed. -Monitor for fluid overload HTN: Uncontrolled. BP 170's, likely compounded by acute COPD exacerbation and respiratory distress -resume patient's home medications including Norvasc and lisinopril -Monitor BP, adjust antihypertensives as needed DVT Prophylaxis: Lovenox sq Discharge Planning: Discharge pending further clinical improvement, not yet ready for discharge.
[2018-07-04] MEDS: Budesonide-Formoterol 160/4.5 MCG 6 GM Inhaler INH SCH ×2 (10:23→20:43)
[2018-07-04 11:24] LABS: Baso % (Auto) 0.2 % (0.0-2.0); Hematocrit 41.1 % (35.0-46.0); Hemoglobin 14.5 gm/dL (11.6-15.3); Lymph # (Auto) 0.4 th/mm3 (1.0-4.8); Lymph % (Auto) 3.3 % (9.0-44.0); Mean Corpuscular HGB Conc 35.2 % (32.0-36.0); Mean Corpuscular Hemoglobin 33.1 pg (27.0-34.0); Mean Platelet Volume 8.9 fL (7.0-11.0); Mono # (Auto) 0.2 th/mm3 (0.0-0.9); Mono % (Auto) 1.5 % (0.0-8.0); Neut # (Auto) 11.3 th/mm3 (1.8-7.7); Platelet Count 250 th/mm3 (150-450); Red Blood Count 4.37 mil/mm3 (4.00-5.30); Red Cell Distribution Width 13.4 % (11.6-17.2); White Blood Count 11.9 th/mm3 (4.0-11.0)
[2018-07-04 11:53] LABS: Albumin 3.8 g/dL (3.4-5.0); Anion Gap 11 meq/L (5-15); Aspartate Aminotransferase 20 U/L (15-37); Blood Urea Nitrogen 11 mg/dL (7-18); Calcium 9.7 mg/dL (8.5-10.1); Carbon Dioxide 25.5 meq/L (21.0-32.0); Chloride 104 meq/L (98-107); Glomerular Filtration Rate 78 mL/min (>89); Glucose,Random 176 mg/dL (74-106); Potassium 3.6 meq/L (3.5-5.1); Sodium 140 meq/L (136-145)
[2018-07-04 11:55] LABS: Alanine Aminotransferase 38 U/L (10-53)
[2018-07-04 11:57] LABS: Alkaline Phosphatase 96 U/L (45-117); Total Protein 8.1 g/dL (6.4-8.2)
[2018-07-04] MEDS: Benzonatate 100 MG Capsule PO SCH ×2 (12:12→18:54)
[2018-07-04] MEDS: levoFLOXacin 750 MG Tablet PO SCH (12:12)
[2018-07-05] MEDS: Benzonatate 100 MG Capsule PO SCH (02:21)
[2018-07-05] MEDS: MethylPREDNISolone Sod Succinate Inj 40 MG/ML Vial IV.PUSH SCH ×2 (02:22→08:34)
[2018-07-05 05:07] VITALS: O2SAT 98
[2018-07-05 08:26] VITALS: PULSE 70; RESP 16
[2018-07-05] MEDS: guaiFENesin 600 MG ER Tablet PO SCH (08:33)
[2018-07-05] MEDS: Lisinopril 20 MG Tablet PO SCH (08:33)
[2018-07-05] MEDS: Enoxaparin Inj 40 MG/0.4 ML Syringe SQ SCH (08:33)
[2018-07-05] MEDS: amLODIPine 10 MG Tablet PO SCH (08:33)
[2018-07-05] MEDS: Senna/Docusate Sodium 8.6/50 MG Tablet PO SCH (08:33)
[2018-07-05] MEDS: levoFLOXacin 750 MG Tablet PO SCH (08:33)
[2018-07-05] MEDS: Budesonide-Formoterol 160/4.5 MCG 6 GM Inhaler INH SCH (08:41)
--- NOTE | 2018-07-05 08:46 | P.PN ---
Subjective Interval history: Follow-up for COPD exacerbation, suspected early pneumonia. The patient reports much improvement since her arrival. She denies any significant wheezing. She has been able to ambulate without difficulty. She does report continued cough, mostly nonproductive. Denies any fevers or chills. She does have a nebulizer at home, requesting refills for the DuoNeb solution. She does not wear oxygen at home. She passed the home O2 walk test with respiratory therapy. She feels ready for discharge today. Physical Exam Vital signs: Vital Signs 07/04/18 09:28 07/04/18 12:00 07/04/18 15:41 Temperature 98.3 F Pulse Rate 91 H 87 87 Respiratory Rate 18 18 18 Blood Pressure 159/70 H Pulse Oximetry 97 95 07/04/18 16:00 07/04/18 19:50 07/04/18 19:58 Temperature 98.6 F 98.5 F Pulse Rate 80 78 78 Respiratory Rate 18 19 19 Blood Pressure 142/67 H 181/72 H Pulse Oximetry 95 96 96 07/04/18 20:48 07/04/18 23:00 07/04/18 23:33 Temperature 98.2 F Pulse Rate 70 Respiratory Rate 20 Blood Pressure 144/70 H 148/66 H Pulse Oximetry 95 96 07/05/18 03:29 07/05/18 04:00 07/05/18 08:25 Temperature Pulse Rate 80 68 70 Respiratory Rate 16 29 H 16 Blood Pressure 144/71 H Pulse Oximetry 98 98 Intake & Output 07/04/18 07/05/18 07/05/18 18:59 06:59 18:59 Other: Date of Last Bowel Movement 07/04/18 Narrative: GENERAL: Well-nourished, well-developed pleasant middle-age female patient in [facility]. SKIN: Warm and dry. No rash. HEENT: Normocephalic. Atraumatic. Pupils equal and round. Mucous membranes pink and moist. CARDIOVASCULAR: Regular rate and rhythm. No murmur appreciated. RESPIRATORY: No accessory muscle use. Clear to auscultation, no wheezing, much improved. Breath sounds equal bilaterally. GASTROINTESTINAL: Abdomen soft, non-tender, nondistended. Normoactive bowel sounds x4. MUSCULOSKELETAL: No obvious deformities. Extremities without clubbing, cyanosis , or edema. NEUROLOGICAL: Awake and alert. No obvious cranial nerve deficits. Motor grossly within normal limits. Moving all extremities spontaneously. Normal speech. Results - Labs CBC & Chem 7: 07/04/18 10:38 07/04/18 10:38 Laboratory Results - last 24 hr 07/04/18 07/04/18 10:38 10:38 WBC 11.9 H D RBC 4.37 Hgb 14.5 Hct 41.1 MCV 94.0 MCH 33.1 MCHC 35.2 RDW 13.4 Plt Count 250 MPV 8.9 Neut % (Auto) 95.0 H Lymph % (Auto) 3.3 L Bill[place] % (Auto) 1.5 Eos % (Auto) 0.0 Baso % (Auto) 0.2 Neut # (Auto) 11.3 H Lymph # (Auto) 0.4 L Bill[place] # (Auto) 0.2 Eos # (Auto) 0.0 Baso # (Auto) 0.0 WBC Differential . Differential Comment Auto diff final Sodium 140 Potassium 3.6 Chloride 104 Carbon Dioxide 25.5 Anion Gap 11 BUN 11 Creatinine 0.91 Estimated GFR 78 L Random Glucose 176 H Calcium 9.7 Total Bilirubin 0.5 AST 20 ALT 38 Alkaline Phosphatase 96 Total Protein 8.1 Albumin 3.8 - Imaging Chest X-Ray 07/03/18 14:35 CONCLUSION: Negative examination. Assessment and Plan - Assessment (1) COPD (chronic obstructive pulmonary disease) Code(s): J44.9 - Chronic obstructive pulmonary disease, unspecified Status: Acute (2) CHF (congestive heart failure) Code(s): I50.9 - Heart failure, unspecified Status: Acute (3) HTN (hypertension) Code(s): I10 - Essential (primary) hypertension Status: Acute (4) Tobacco use Code(s): Z72.0 - Tobacco use Status: Chronic - Plan 52-year-old female with a PMH of HTN, Hyperlipidemia, CHF (Echo 04/17/2014 with EF 45-50%), COPD and Tobacco Abuse who presented to ER with complaints of SOB, wheezing and productive cough w/ white-colored sputum x2 days. Acute COPD Exacerbation: Severe. +SOB/wheezing despite Solu-Medrol/DuoNeb in ER -Continue steroids with IV Solu-Medrol 40 mg every 6 hours -Continue bronchodilators with DuoNeb's every 6 hours -Continue Symbicort twice daily -Continue Mucinex, added Tessalon Perles for cough -Given purulent sputum production, continued on Levaquin 750 mg daily -O2 as needed to maintain O2 sats greater than 92% -Much improved today, past home O2 walk test, stable for discharge -Case management assisted with filling of prescriptions prior to discharge CHF: Chronic. Systolic. Does not appear to be significantly fluid overloaded at this time. -EMR reviewed, echo 04/17/14 w/ EF 45-50% -BNP normal -CXR w/ no acute findings, images reviewed. -Monitor for fluid overload, stable HTN: Uncontrolled. BP 170's, likely compounded by acute COPD exacerbation and respiratory distress -resume patient's home medications including Norvasc and lisinopril -Monitor BP, adjust antihypertensives as needed DVT Prophylaxis: Lovenox sq Discharge Planning: Discharge patient to home Condition on discharge: Stable Heart healthy diet as tolerated [place] activity Rx written: Prednisone taper, Levaquin, duo nebs, albuterol inhaler, Mucinex Follow-up with primary care physician at the [facility]
[2018-07-05 08:56] VITALS: BP 168/77; TEMP 98.4
== END 2018-07-05 14:54 | disposition home or self-care (01) ==
LOC: NEPC 14:31 → NEDA 14:31 → NEPGCP 20:15
PROVIDERS: ADMIT Hospitalist; ATTEND Hospitalist